=== PATIENT | male | born 2000 | race Caucasian/White ===

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

== ENCOUNTER 2023-02-21 13:50 | Emergency (ER) | payer SELFPAY | END 2023-02-21 14:35 | disposition home or self-care (01) | LOC: ER 13:50 | DX: B34.9 Viral infection, unspecified (principal); Z87.891 Personal history of nicotine dependence; Z20.822 Contact with and (suspected) exposure to COVID-19 ==

== ENCOUNTER 2023-05-16 23:17 | Emergency (ER) | payer OTHER ==
[~2023-05-16] VITALS: Ht 188 cm; Wt 113.4 kg
[~2023-05-16 23:17] MED LIST changes: +ONDA4ODT MM
[2023-05-16 23:32] VITALS: BP 133/63
[2023-05-17 00:26] LABS: Influenza A, PCR NEGATIVE (NEGATIVE); Influenza B, PCR NEGATIVE (NEGATIVE); Resp Syncytial Virus, PCR NEGATIVE (NEGATIVE); SARS-Cov-2 (COVID-19) PCR, MMC NEGATIVE (NEGATIVE)
[2023-05-17] MEDS ORDERED: Amoxicillin500 MG PO (00:40)
== END 2023-05-17 00:51 | disposition home or self-care (01) ==
LOC: ER 23:17
PROVIDERS: Student in an Organized Health Care Education/Training Program
DX: J02.0 Streptococcal pharyngitis (principal); J45.909 Unspecified asthma, uncomplicated
CPT/HCPCS: 0241U; 87081; 87430; 96372; 99283-25; A9270; J1885